=== PATIENT | female | born 1965 | race Caucasian/White ===

== ENCOUNTER → 2016-11-24 | Outpatient (CLI) | payer OTHER ==
--- NOTE | 2016-11-24 13:36 | KCIC ---
Three views left foot Indication:Reason For Study Reason: LT FOOT PAIN / Spl. Instructions: Pain for about 1 weeks. Pain base of 5th metatarsal / History: FINDINGS No fracture dislocation. No periosteal reaction or focal bone lesion. Joint spaces are well maintained. Soft tissues are unremarkable. IMPRESSION Normal exam of the left foot. Electronically signed by: Shady Schulz (Nov 24, 2016 13:35:59)
== END | disposition home or self-care (01) ==
LOC: KCIC 12:38
PROVIDERS: ATTEND Family Medicine
DX: M79.672 Pain in left foot (principal)
CPT/HCPCS: 73630